=== PATIENT | male | born 1985 | race African-American/Black ===

== ENCOUNTER 2016-10-13 14:26 | Emergency (ER) | payer MEDICAID ==
[~2016-10-13] VITALS: Ht 160 cm; Wt 70.0 kg
[~2016-10-13 14:26] MED LIST: IBUP800T23 PO
[2016-10-13 14:27] VITALS: BP 117/80; PULSE 66; RESP 14; TEMP 97.8; O2SAT 100
--- NOTE | 2016-10-13 16:30 | PD ---
HPI Chief Complaint: Complaint Time Seen by Provider: 16:30 Travel History International Travel<30 days: No Contact w/Intl Traveler<30days: No Traveled to known affect area: No History of Present Illness HPI 31-year-old male presents to ED for evaluation of a 3 month history of pain and bulging of the right groin. Patient states this has been present for quite some time, however today while lifting something heavy he felt "a stretching" in the area that caused him to seek treatment. He rates the pain 10/10 at that time. He took 2 Tylenol and currently rates the pain 5/10. He endorses one episode of vomiting at the time of injury, denies nausea vomiting on presentation. He denies abdominal pain, testicular pain, fevers, chills, dysuria, nausea, vomiting, change in bowel habits. Endorses well formed, nonbloody bowel movement today. Denies chronic health problems, takes no daily medications. NKDA PFSH Past Medical History Asthma: Yes (CHRONIC BRONCHITIS) Tetanus Vaccination: < 5 Years Influenza Vaccination: No Past Surgical History Surgical History: No Previous Surgery Social History Alcohol Use: Yes (socially) Tobacco Use: Yes (<1/2 ppd) Substance Use: No Allergies-Medications (Allergen,Severity, Reaction): Coded Allergies: Penicillin (Unverified Allergy, Severe, 10/13/16) Reported Meds & Prescriptions Reported Meds & Active Scripts Active No Active Prescriptions or Reported Medications Review of Systems Except as stated in HPI: all other systems reviewed are Neg Physical Exam Narrative GENERAL: Well-nourished, well-developed black male in no acute distress. SKIN: Warm and dry. HEAD: Normocephalic. EYES: No scleral icterus. No injection or drainage. NECK: Supple, trachea midline. No JVD or lymphadenopathy. CARDIOVASCULAR: Regular rate and rhythm without murmurs, gallops, or rubs. RESPIRATORY: Breath sounds equal bilaterally. No accessory muscle use. GASTROINTESTINAL: Abdomen soft, non-tender, nondistended. Active bowel sounds. Minimal bulge in the right groin area. Easily reducible with steady pressure. MUSCULOSKELETAL: No cyanosis, or edema. GENITOURINARY: Circumcised. Testes descended bilaterally without evidence of rotation. No lesions or erythema. No urethral discharge. BACK: Nontender without obvious deformity. No CVA tenderness. Data Data Last Documented VS Vital Signs Date Time Temp Pulse Resp B/P Pulse Ox O2 Delivery O2 Flow Rate FiO2 10/13/16 14:27 97.8 66 14 117/80 100 Room Air MDM Medical Decision Making Medical Screen Exam Complete: Yes Emergency Medical Condition: Yes Differential Diagnosis Groin strain versus inguinal hernia versus abdominal hernia versus other Narrative Course 31-year-old male presents to ED for evaluation of a 3 month history of pain and bulging of the right groin. Patient states this has been present for quite some time, however today while lifting something heavy he felt "a stretching" in the area that caused him to seek treatment. He rates the pain 10/10 at that time. He took 2 Tylenol and currently rates the pain 5/10. He endorses one episode of vomiting at the time of injury, denies nausea vomiting on presentation. He denies abdominal pain, testicular pain, fevers, chills, dysuria, nausea, vomiting, change in bowel habits. Endorses well formed, nonbloody bowel movement today. Vitals reviewed. Physical exam reveals a nontoxic-appearing black male in no acute distress. There does appear to be a right inguinal hernia that is easily reducible. I offered the patient's CT of the abdomen to confirm this diagnosis and rule out strangulation. The patient refused at this time, stating that he needed to His children from school. I informed the patient that he should follow up with the outpatient provider, seek referral to a general surgeon. I instructed him to purchase a hernia belt , wear this for support in the interim. We reasons to return to the ED. The patient indicated understanding of the instructions, is amenable to the plan of care. He is stable and discharged home. Diagnosis Primary Impression: Right inguinal pain Referrals: General Surgeon Primary Care Physician Patient Instructions: General Instructions, Inguinal Hernia (ED) Additional Instructions: Rest, hydrate. Wear a hernia belt, available [id number]. Ice packs, ibuprofen can help to treat symptoms. Return to the ED for worsening of symptoms, pain that is not improved by ice or ibuprofen, nausea, vomiting, fevers. Follow-up with the primary care provider and a general surgeon for further evaluation. Return to the ED for any urgent or emergent medical condition. Scripts No Active Prescriptions or Reported Meds Disposition: 01 DISCHARGE HOME Condition: Stable Carol David Oct 13, 2016 16:30
== END 2016-10-13 16:58 | disposition home or self-care (01) ==
LOC: NETRI 14:26
DX: R10.31 Right lower quadrant pain (principal); Z87.09 Personal history of other diseases of the respiratory system; Z72.0 Tobacco use

== ENCOUNTER 2017-11-07 18:17 | Emergency (ER) | payer MEDICAID ==
[~2017-11-07] VITALS: Ht 167.6 cm; Wt 67.0 kg
[2017-11-07 18:18] VITALS: BP 136/59; PULSE 89; RESP 18; TEMP 98.4; O2SAT 100
--- NOTE | 2017-11-07 18:48 | PD ---
HPI Chief Complaint: Lump, Cyst, Hernia Time Seen by Provider: 18:40 Travel History International Travel<30 days: No Contact w/Intl Traveler<30days: No Traveled to known affect area: No History of Present Illness HPI 32-year-old male presents for evaluation of a bulging sensation in his right groin. Symptoms started 2 months ago. Symptoms wax and wane. Today he reports that he was lifting a 5 gallon bucket when he had increased discomfort in the area and this is what prompted evaluation. Denies any constipation, nausea or vomiting, abdominal pain, fevers or chills. He has no other complaints at this time. [facility] Past Medical History Medical History: Denies Significant Hx Asthma: Yes (CHRONIC BRONCHITIS) Tetanus Vaccination: Unknown Past Surgical History Surgical History: No Previous Surgery Social History Alcohol Use: Yes (socially) Tobacco Use: Yes (<1/2 ppd) Substance Use: No Allergies-Medications (Allergen,Severity, Reaction): Coded Allergies: penicillin G (Unverified Allergy, Severe, 11/07/17) Reported Meds & Prescriptions Reported Meds & Active Scripts Active No Active Prescriptions or Reported Medications Review of Systems Except as stated in HPI: all other systems reviewed are Neg Physical Exam Narrative GENERAL: Well developed well-nourished male in no acute distress SKIN: Warm and dry. HEAD: Atraumatic. Normocephalic. EYES: Pupils equal and round. No scleral icterus. No injection or drainage. ENT: No nasal bleeding or discharge. Mucous membranes pink and moist. NECK: Trachea midline. No JVD. CARDIOVASCULAR: Regular rate and rhythm. No murmur appreciated. RESPIRATORY: No accessory muscle use. Clear to auscultation. Breath sounds equal bilaterally. GASTROINTESTINAL: Abdomen soft, non-tender, nondistended. Hepatic and splenic margins not palpable. examination reveals a bulging in the right inguinal region which is increased with Valsalva maneuver. Easily reducible. Bilateral distended testicles noted which are nontender. Data Data Last Documented VS Vital Signs Date Time Temp Pulse Resp B/P (MAP) Pulse Ox O2 Delivery O2 Flow Rate FiO2 11/07/17 18:18 98.4 89 18 136/59 (84) 100 Room Air MDM Medical Decision Making Medical Screen Exam Complete: Yes Emergency Medical Condition: Yes Medical Record Reviewed: Yes Differential Diagnosis Reducible inguinal hernia, strangulated inguinal hernia, incarcerated inguinal hernia, malignancy Narrative Course Examination is consistent with a small reducible right-sided inguinal hernia. I discussed in great detail whether hernia is and I recommended follow-up with a general surgeon on a routine basis to discuss surgical repair. I discussed signs and symptoms of incarcerated or strangulated hernia that would warrant returning to the emergency room. He verbalizes understanding. Diagnosis Primary Impression: Right inguinal hernia Referrals: Kunal Qureshi MD Additional Instructions: Follow-up with a general surgeon such as Dr. Qureshi on a routine basis. Avoid straining during bowel movements. Avoid sudden heavy lifting. Return for any acute worsening or worsening symptoms such as severe pain, nausea or vomiting, fevers. Med/Other Pt SpecificInfo: No Change to Meds Scripts No Active Prescriptions or Reported Meds Disposition: 01 DISCHARGE HOME Condition: Stable Kong Wright Nov 07, 2017 18:48
== END 2017-11-07 19:08 | disposition home or self-care (01) ==
LOC: NEPK 18:17
DX: K40.90 Unilateral inguinal hernia, without obstruction or gangrene, not specified as recurrent (principal); F17.200 Nicotine dependence, unspecified, uncomplicated
CPT/HCPCS: 99282